=== PATIENT | female | born 1985 | race Caucasian/White ===

== ENCOUNTER 2019-03-06 21:07 | Emergency (ER) | payer SELFPAY ==
[2019-03-06] MEDS ORDERED: HYDROCODONE/APAP 5/325 MG TAB ONE (21:41)
--- NOTE | 2019-03-06 22:31 | EDPHYS ---
Physician Documentation [facility] Name: Ebonie Talbot Age: 34 yrs Sex: Female : 1985 Arrival Date: 03/06/2019 Time: 21:10 Bed 13 Private MD: Ben Irving ED Physician Rajendra Chang HPI: 03/06 21:22 This 34 yrs old Female presents to ER via Ambulatory with complaints of Back snw Pain. 21:22 The patient presents with pain that is acute. The symptoms are located in the low back, snw right low back. Onset: The symptoms/episode began/occurred suddenly, last night, and became persistent. The pain does not radiate. Associated signs and symptoms: The patient has no apparent associated signs or symptoms. The problem was sustained when bending over. Severity of symptoms: At their worst the symptoms were moderate. The patient has not experienced similar symptoms in the past. It is unknown whether or not the patient has recently seen a physician. 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 - Social history:: Smoking status: Patient/guardian denies using tobacco. - Ebola Screening: : Patient negative for fever greater than or equal to 101.5 degrees Fahrenheit, and additional compatible Ebola Virus Disease symptoms. ROS: 21:18 Constitutional: Negative for fever, chills, and weight loss, Eyes: Negative for injury, snw pain, redness, and discharge, ENT: Negative for injury, pain, and discharge, Neck: Negative for injury, pain, and swelling, Cardiovascular: Negative for chest pain, palpitations, and edema, Respiratory: Negative for shortness of breath, cough, wheezing, and pleuritic chest pain, Abdomen/GI: Negative for abdominal pain, nausea, vomiting, diarrhea, and constipation, Back: Negative for injury and pain, : Negative for injury, bleeding, discharge, and swelling, Skin: Negative for injury, rash, and discoloration, Neuro: Negative for headache, weakness, numbness, tingling, and seizure. 21:18 MS/extremity: Positive for pain, tenderness, of the right lower back. Exam: 21:19 Constitutional: This is a well developed, well nourished patient who is awake, alert, snw and in no acute distress. Head/Face: Normocephalic, atraumatic. Eyes: Pupils equal round and reactive to light, extra-ocular motions intact. Lids and lashes normal. Conjunctiva and sclera are non-icteric and not injected. Cornea within normal limits. Periorbital areas with no swelling, redness, or edema. ENT: Nares patent. No nasal discharge, no septal abnormalities noted. Tympanic membranes are normal and external auditory canals are clear. Oropharynx with no redness, swelling, or masses, exudates, or evidence of obstruction, uvula midline. Mucous membranes moist. Neck: Trachea midline, no thyromegaly or masses palpated, and no cervical lymphadenopathy. Supple, full range of motion without nuchal rigidity, or vertebral point tenderness. No Meningismus. Chest/axilla: Normal chest wall appearance and motion. Nontender with no deformity. No lesions are appreciated. Cardiovascular: Regular rate and rhythm with a normal S1 and S2. No gallops, murmurs, or rubs. Normal PMI, no JVD. No pulse deficits. Respiratory: Lungs have equal breath sounds bilaterally, clear to auscultation and percussion. No rales, rhonchi or wheezes noted. No increased work of breathing, no retractions or nasal flaring. Abdomen/GI: Soft, non-tender, with normal bowel sounds. No distension or tympany. No guarding or rebound. No evidence of tenderness throughout. Back: No spinal tenderness. No costovertebral tenderness. Full range of motion. Skin: Warm, dry with normal turgor. Normal color with no rashes, no lesions, and no evidence of cellulitis. Neuro: Awake and alert, GCS 15, oriented to person, place, time, and situation. Cranial nerves II-XII grossly intact. Motor strength 5/5 in all extremities. Sensory grossly intact. Cerebellar exam normal. Normal gait. Psych: Awake, alert, with orientation to person, place and time. Behavior, mood, and affect are within normal limits. 21:19 Musculoskeletal/extremity: ROM: intact in all extremities, pain to right lower back/upper buttock . 21:19 Neuro: Exam negative for acute changes. Vital Signs: 21:21 BP 138 / 93; Pulse 89; Resp 17 S; Pulse Ox 100% on R/A; Weight 113.4 kg (R); Height 5 jd3 ft. 5 in. (165.10 cm) (R); Pain 9/10; 22:00 BP 131 / 93; Pulse 77; Resp 16; Pulse Ox 100% on R/A; jb4 22:50 BP 132 / 84; Pulse 78; Resp 16; Pulse Ox 100% on R/A; jb4 21:21 Body Mass Index 41.60 (113.40 kg, 165.10 cm) jd3 MDM: 21:14 Patient medically screened. snw 22:33 Data reviewed: vital signs, nurses notes. Data interpreted: Pulse oximetry: on room air snw is 100 %. Interpretation: normal. Counseling: I had a detailed discussion with the patient and/or guardian regarding: the historical points, exam findings, and any diagnostic results supporting the discharge/admit diagnosis, the presence of at least one elevated blood pressure reading (>120/80) during this emergency department visit, radiology results, the need for outpatient follow up, to return to the emergency department if symptoms worsen or persist or if there are any questions or concerns that arise at home. 03/06 21:18 Order name: Pelvis XRAY snw Administered Medications: 21:22 CANCELLED (other intervention used): TORadol 30 mg IM once snw 21:31 Drug: [place]win 5 mg-325 mg 1 tabs Route: PO; jb4 22:00 Follow up: Response: No adverse reaction; Pain is unchanged, physician notified jb4 22:48 Drug: Valium 5 mg Route: PO; jb4 22:49 Follow up: Response: Medication administered at discharge. jb4 Disposition: 03/07 03:00 Co-signature as Attending Physician, Rajendra Chang MD. ma2 Disposition: 03/06/19 22:30 Discharged to Home. Impression: Pain in right hip, Other bursitis of hip, right hip. - Condition is Stable. - Discharge Instructions: Joint Pain, Hip Bursitis, Musculoskeletal Pain, Hip Pain, Cryotherapy, Heat Therapy. - Prescriptions for Ultram 50 mg Oral Tablet - take 1 tablet by ORAL route every 6 hours As needed; 20 tablet. - Medication Reconciliation Form, Thank You Letter, Antibiotic Education, Prescription Opioid Use form. - Follow up: Ben Irving MD; When: 2 - 3 days; Reason: Recheck today's complaints, Continuance of care, Re-evaluation by your physician. Follow up: Emergency Department; When: As needed; Reason: Worsening of condition. Signatures: Dispatcher [employer] EDMS Neetu Oneil, MEDICAL ANTHROPOLOGY DIRECTOR-C MEDICAL ANTHROPOLOGY DIRECTOR-Csnw Shoaib Workman, RN RN jb4 Tony Murray RN RN jd3 Rajendra Chang MD MD ma2 Corrections: (The following items were deleted from the chart) 03/06 21:22 21:18 TORadol 30 mg IM once ordered. snw snw 21:22 21:21 TORadol 30 mg IM once ordered. snw snw 22:56 22:30 03/06/2019 22:30 Discharged to Home. Impression: Pain in right hip; Other jb4 bursitis of hip, right hip. Condition is Stable. Forms are Medication Reconciliation Form, Thank You Letter, Antibiotic Education, Prescription Opioid Use. Follow up: Ben Irving; When: 2 - 3 days; Reason: Recheck today's complaints, Continuance of care, Re-evaluation by your physician. Follow up: Emergency Department; When: As needed; Reason: Worsening of condition. snw
--- NOTE | 2019-03-06 22:31 | ER ---
Nurse's Notes [facility] Name: Ebonie Talbot Age: 34 yrs Sex: Female : 1985 Arrival Date: 03/06/2019 Time: 21:10 Bed 13 Private MD: Ben Irving Diagnosis: Pain in right hip;Other bursitis of hip, right hip Presentation: 03/06 21:19 Presenting complaint: Patient states: "I lifted my right leg up onto a shower chair to [facility] dry off and when I did, I heard a pop and now my right hip really hurts.". Transition of care: patient was not received from another setting of care. Onset of symptoms was March 05, 2019. Risk Assessment: Do you want to hurt yourself or someone else? Patient reports no desire to harm self or others. Initial Sepsis Screen: Does the patient meet any 2 criteria? No. Patient's initial sepsis screen is negative. Does the patient have a suspected source of infection? No. Patient's initial sepsis screen is negative. Care prior to arrival: None. 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 - Social history:: Smoking status: Patient/guardian denies using tobacco. - Ebola Screening: : Patient negative for fever greater than or equal to 101.5 degrees Fahrenheit, and additional compatible Ebola Virus Disease symptoms. Screenin:10 Abuse screen: Denies threats or abuse. Nutritional screening: No deficits noted. jb4 Tuberculosis screening: No symptoms or risk factors identified. Fall Risk None identified. Assessment: 21:10 General: Appears in no apparent distress. uncomfortable, Behavior is calm, cooperative, jb4 appropriate for age. Pain: Complains of pain in right low back Pain radiates to right mid back Pain currently is 5 out of 10 on a pain scale. at worst was 10 out of 10 on a pain scale. Quality of pain is described as stabbing, Pain began 1 day ago. Is continuous, Alleviated by rest, Aggravated by increased activity. Neuro: Level of Consciousness is awake, alert, obeys commands, Oriented to person, place, time, situation. Cardiovascular: Patient's skin is warm and dry. Respiratory: Airway is patent Respiratory effort is even, unlabored, Respiratory pattern is regular, symmetrical. GI: No signs and/or symptoms were reported involving the gastrointestinal system. : No signs and/or symptoms were reported regarding the genitourinary system. EENT: No signs and/or symptoms were reported regarding the EENT system. Derm: Skin is intact, Skin is pink, warm \\T\\ dry. Musculoskeletal: Circulation, motion, and sensation intact. 22:21 Reassessment: Patient appears in no apparent distress at this time. No changes from jb4 previously documented assessment. Patient and/or family updated on plan of care and expected duration. Pain level reassessed. Patient is alert, oriented x 3, equal unlabored respirations, skin warm/dry/pink. 22:50 Reassessment: Patient appears in no apparent distress at this time. Patient is alert, jb4 oriented x 3, equal unlabored respirations, skin warm/dry/pink. Pt ambulated out of ED with steady gait, verbalized understanding of d/c and follow up instructions. Vital Signs: 21:21 BP 138 / 93; Pulse 89; Resp 17 S; Pulse Ox 100% on R/A; Weight 113.4 kg (R); Height 5 jd3 ft. 5 in. (165.10 cm) (R); Pain 9/10; 22:00 BP 131 / 93; Pulse 77; Resp 16; Pulse Ox 100% on R/A; jb4 22:50 BP 132 / 84; Pulse 78; Resp 16; Pulse Ox 100% on R/A; jb4 21:21 Body Mass Index 41.60 (113.40 kg, 165.10 cm) jd3 ED Course: 21:10 Patient arrived in ED. es 21:11 Ben Irving MD is Private Physician. es 21:14 Neetu Oneil F[facility]-C [facility]. snw 21:14 Rajendra Chang MD is Attending Physician. snw 21:15 Patient has correct armband on for positive identification. Bed in low position. Call jb4 light in reach. Side rails up X 1. Pulse ox on. NIBP on. 21:20 Shoaib Workman, RN is Primary Nurse. jb4 21:21 Triage completed. jd3 21:22 Arm band placed on. jd3 22:10 Pelvis XRAY In Process Unspecified. EDMS 22:29 Ben Irving MD is Referral Physician. snw 22:50 No provider procedures requiring assistance completed. Patient did not have IV access jb4 during this emergency room visit. Administered Medications: : CANCELLED (other intervention used): TORadol 30 mg IM once snw 21:31 Drug: [place] 5 mg-325 mg 1 tabs Route: PO; jb4 22:00 Follow up: Response: No adverse reaction; Pain is unchanged, physician notified jb4 22:48 Drug: Valium 5 mg Route: PO; jb4 22:49 Follow up: Response: Medication administered at discharge. jb4 Outcome: 22:30 Discharge ordered by . snw 22:50 Discharged to home ambulatory, with family. jb4 22:50 Condition: stable 22:50 Discharge instructions given to patient, Instructed on discharge instructions, follow up and referral plans. medication usage, Demonstrated understanding of instructions, follow-up care, medications, Prescriptions given X 1. 22:56 Patient left the ED. jb4 Signatures: Dispatcher [employer] EDMO Neetu Oneil, PIT CRANE OPERATOR-C PIT CRANE OPERATOR-Csnw Susanne Espinosa James, RN YUMIKO jb4 Tony Murray RN RN jd3
[2019-03-06] MEDS ORDERED: DIAZEPAM 5 MG TABLET ONE (22:57)
[2019-03-06 23:02] VITALS: O2SAT 100
[2019-03-06 23:04] VITALS: BP 132/84
--- NOTE | 2019-03-07 08:43 | RAD REPORT ---
EXAM DESCRIPTION: RAD - Pelvis - 03/06/2019 10:09 pm CLINICAL HISTORY: Right hip pain following trauma COMPARISON: None. TECHNIQUE: AP imaging of the pelvis was obtained. FINDINGS: AP views of the pelvis and bilateral hip joints obtained. No fracture or dislocation. No femoral head abnormality. Hip joints are normal in appearance and symm etric. No periarticular abnormality. Bony pelvis unremarkable. No soft tissue abnormality identifiabl e. IMPRESSION: Negative pelvis
== END 2019-03-06 22:56 | disposition home or self-care (01) ==
LOC: ER 21:07
DX: M71.551 Other bursitis, not elsewhere classified, right hip (principal); Z88.6 Allergy status to analgesic agent; Z88.1 Allergy status to other antibiotic agents
CPT/HCPCS: 72170; 99284

== ENCOUNTER 2020-02-22 08:41 | Emergency (ER) | payer SELFPAY ==
[2020-02-22] MEDS ORDERED: METHYLPREDNISOLONE 125 MG INJ ONE (09:56)
[2020-02-22] MEDS ORDERED: KETOROLAC 30 MG/ML INJ ONE (09:57)
[2020-02-22] MEDS ORDERED: HYDROCODONE/APAP 10/325 TAB ONE (09:57)
[2020-02-22 10:08] LABS: Urine Blood NEGATIVE (NEG); Urine Glucose NEGATIVE (NEG); Urine Protein NEGATIVE (NEG); Urine Specific Gravity 1.025 (1.005-1.030); Urine pH 5.5 (5.0-7.0)
--- NOTE | 2020-02-22 10:16 | RAD REPORT ---
EXAM DESCRIPTION: CT - Spine Lumbar Wo Con - 02/22/2020 10:06 am CLINICAL HISTORY: Radiculopathy. LOWER BACK PAIN COMPARISON: No comparisons TECHNIQUE: Axial noncontrast CT imaging of the lumbar spine was performed with coronal and sagittal re-formatted images. All CT scans are performed using dose optimization technique as appropriate and may include automated exposure control or mA/KV adjustment according to patient size. FINDINGS: No acute lumbar spine fracture seen. No aggressive marrow pattern or malalignment. Paraspinal tissues are normal in thickness. No paraspinal abscess or hematoma seen. Mild posterior disc bulges are present lower lumbar levels most notable at L4-5 and L5-S1. No severe canal stenosis suspected. IMPRESSION: No acute lumbar spine abnormality is seen. Consider MRI follow-up for assessment of disc disease if clinically desired.
--- NOTE | 2020-02-22 11:36 | EDPHYS ---
Physician Documentation [facility] Name: Ebonie Talbot Age: 35 yrs Sex: Female : 1985 Arrival Date: 02/22/2020 Time: 08:44 Bed 14 Private MD: ED Physician Tristian Evangelista HPI: 02/22 07:31 This 35 yrs old Female presents to ER via Ambulatory with complaints of Back kdr Pain. 07:31 The patient presents with pain that is acute, with no known mechanism of injury. The kdr symptoms are located in the low back. Onset: The symptoms/episode began/occurred suddenly, 2 day(s) ago. The pain does not radiate. Associated signs and symptoms: The patient has no apparent associated signs or symptoms. The problem was sustained from unknown cause. Modifying factors: The patient symptoms are alleviated by specific position, sitting, the patient symptoms are aggravated by movement, supine position. Severity of symptoms: At their worst the symptoms were mild, moderate, just prior to arrival, in the emergency department the symptoms are unchanged. The patient has not experienced similar symptoms in the past. The patient has not recently seen a physician. Historical: - Allergies: 02/21 09:00 Ceclor; ss 09:00 Naproxen; ss - PSHx: 09:00 Tubal ligation; lap band; right knee; Adenoids; Ear Tubes; Cholecystectomy; ss Appendectomy; - Immunization history:: Adult Immunizations up to date. - Social history:: Smoking status: Patient denies any tobacco usage or history of. ROS: 02/22 07:31 Constitutional: Negative for fever, chills, and weight loss, Eyes: Negative for injury, kdr pain, redness, and discharge, Neck: Negative for injury, pain, and swelling, Cardiovascular: Negative for chest pain, palpitations, and edema, Respiratory: Negative for shortness of breath, cough, wheezing, and pleuritic chest pain, Abdomen/GI: Negative for abdominal pain, nausea, vomiting, diarrhea, and constipation, : Negative for injury, bleeding, discharge, and swelling, MS/Extremity: Negative for injury and deformity, Skin: Negative for injury, rash, and discoloration, Neuro: Negative for headache, weakness, numbness, tingling, and seizure activity. Psych: Negative for depression, anxiety, suicide ideation, homicidal ideation, and hallucinations, Allergy/Immunology: Negative for hives, rash, and allergies, Endocrine: Negative for neck swelling, polydipsia, polyuria, polyphagia, and marked weight changes, Hematologic/Lymphatic: Negative for swollen nodes, abnormal bleeding, and unusual bruising. Back: Positive for decreased range of motion, pain at rest, pain with movement, of the lumbar area. Exam: 07:31 Constitutional: This is a well developed, well nourished patient who is awake, alert, kdr and in no acute distress. Head/Face: Normocephalic, atraumatic. Eyes: Pupils equal round and reactive to light, extra-ocular motions intact. Lids and lashes normal. Conjunctiva and sclera are non-icteric and not injected. Cornea within normal limits. Periorbital areas with no swelling, redness, or edema. Neck: Trachea midline, no thyromegaly or masses palpated, and no cervical lymphadenopathy. Supple, full range of motion without nuchal rigidity, or vertebral point tenderness. No Meningismus. Chest/axilla: Normal chest wall appearance and motion. Nontender with no deformity. No lesions are appreciated. Cardiovascular: Regular rate and rhythm with a normal S1 and S2. No gallops, murmurs, or rubs. Normal PMI, no JVD. No pulse deficits. Respiratory: Lungs have equal breath sounds bilaterally, clear to auscultation and percussion. No rales, rhonchi or wheezes noted. No increased work of breathing, no retractions or nasal flaring. Abdomen/GI: Soft, non-tender, with normal bowel sounds. No distension or tympany. No guarding or rebound. No evidence of tenderness throughout. Skin: Warm, dry with normal turgor. Normal color with no rashes, no lesions, and no evidence of cellulitis. MS/ Extremity: Pulses equal, no cyanosis. Neurovascular intact. Full, normal range of motion. Neuro: Awake and alert, GCS 15, oriented to person, place, time, and situation. Cranial nerves II-XII grossly intact. Motor strength 5/5 in all extremities. Sensory grossly intact. Cerebellar exam normal. Normal gait. Psych: Awake, alert, with orientation to person, place and time. Behavior, mood, and affect are within normal limits. 07:31 Back: pain, that is mild, of the lumbar area, ROM is painful, with all movement, normal spinal alignment noted, CVA tenderness, is absent. Vital Signs: 02/21 08:59 BP 142 / 88; Pulse 84; Resp 16; Temp 98.8(TE); Pulse Ox 100% on R/A; Weight 104.33 kg; ss Height 5 ft. 5 in. (165.10 cm); Pain 8/10; 08:59 Body Mass Index 38.27 (104.33 kg, 165.10 cm) ss MDM: 11:35 Patient medically screened. kdr 02/22 07:31 Data reviewed: vital signs, nurses notes, radiologic studies. Counseling: I had a kdr detailed discussion with the patient and/or guardian regarding: the historical points, exam findings, and any diagnostic results supporting the discharge/admit diagnosis, radiology results, the need for outpatient follow up. 02/21 10:03 Order name: Urine Dipstick--Ancillary (enter results); Complete Time: 11:23 em1 02/21 10:03 Order name: Urine --Ancillary (enter results); Complete Time: 11:23 em1 02/21 09:35 Order name: CT Lumbar Spine Wo Con; Complete Time: 11:23 kdr 02/21 09:35 Order name: Urine Dipstick-Ancillary (obtain specimen); Complete Time: 09:57 kdr 02/21 09:35 Order name: Urine Test (obtain specimen); Complete Time: 09:57 kdr Administered Medications: 02/21 10:23 Drug: Page 10 mg-325 mg 1 tabs Route: PO; em 11:20 Follow up: Response: No adverse reaction; No change in condition; Pain is unchanged, em physician notified; RASS: Alert and Calm (0) 10:25 Drug: TORadol - Ketorolac 15 mg Route: IVP; Site: right antecubital; em 11:20 Follow up: Response: No adverse reaction; Pain is unchanged, physician notified em 10:27 Drug: SOLU-Medrol 125 mg Route: IVP; Site: right antecubital; em 11:20 Follow up: Response: No adverse reaction; Pain is unchanged, physician notified em 11:49 Drug: Robaxin 750 mg Route: PO; aa5 11:49 Follow up: Response: Medication administered at discharge. aa5 Disposition: 02/22/20 11:35 Discharged to Home. Impression: Low back pain. - Condition is Stable. - Discharge Instructions: Back Pain, Adult, Musculoskeletal Pain, Pain Without a Known Cause. - Prescriptions for Robaxin 500 mg Oral Tablet - take 2 tablet by ORAL route every 6 hours As needed; 40 tablet. Tylenol- Codeine #3 300-30 mg Oral Tablet - take 2 tablet by ORAL route every 6 hours As needed; 30 tablet. Medrol (Jake) 4 mg Oral Tablets, Dose Pack - take 1 tablet by ORAL route as directed - follow package instructions; 1 packet. - Medication Reconciliation Form, Thank You Letter, Prescription Opioid Use form. - Follow up: Private Physician; When: 2 - 3 days; Reason: If symptoms return, Further diagnostic work-up, Recheck today's complaints, Continuance of care, Re-evaluation by your physician. - Problem is new. - Symptoms have improved. Signatures: Dispatcher [employer] EDTristian Mejia MD MD kdr Rigoberto Small RN RN em Jacqueline Vergara RN RN aa5 Taty Caal RN RN ss Corrections: (The following items were deleted from the chart) 11:50 11:35 02/22/2020 11:35 Discharged to Home. Impression: Low back pain. Condition is aa5 Stable. Forms are Medication Reconciliation Form, Thank You Letter, Antibiotic Education, Prescription Opioid Use. Follow up: Private Physician; When: 2 - 3 days; Reason: If symptoms return, Further diagnostic work-up, Recheck today's complaints, Continuance of care, Re-evaluation by your physician. Problem is new. Symptoms have improved. kdr
--- NOTE | 2020-02-22 11:36 | ER ---
Nurse's Notes [facility] Name: Ebonie Talbot Age: 35 yrs Sex: Female : 1985 Arrival Date: 02/22/2020 Time: 08:44 Bed 14 Private MD: Diagnosis: Low back pain Presentation: 02/21 08:59 Chief complaint: Patient states: Low back pain that began 2 days ago. Denies injury. Coronavirus screen: Proceed with normal triage. Patient denies a cough. Patient denies shortness of breath or difficulty breathing. Patient denies measured and/or subjective temperature greater than 100.4F prior to today's visit. Patient denies travel on a cruise ship or to a country the [facility] currently lists as an affected area. Patient denies contact with known and/or suspected case of COVID-19. Ebola Screen: Patient denies exposure to infectious person. Patient denies travel to an Ebola-affected area in the 21 days before illness onset. Initial Sepsis Screen: Does the patient meet any 2 criteria? No. Patient's initial sepsis screen is negative. Does the patient have a suspected source of infection? No. Patient's initial sepsis screen is negative. Risk Assessment: Do you want to hurt yourself or someone else? Patient reports no desire to harm self or others. Onset of symptoms was February 20, 2020. 08:59 Method Of Arrival: Ambulatory 08:59 Acuity: RAMU 4 ss Historical: - Allergies: 09:00 Ceclor; ss 09:00 Naproxen; ss - PSHx: 09:00 Tubal ligation; lap band; right knee; Adenoids; Ear Tubes; Cholecystectomy; ss Appendectomy; - Immunization history:: Adult Immunizations up to date. - Social history:: Smoking status: Patient denies any tobacco usage or history of. Screenin:45 Abuse screen: Denies threats or abuse. Nutritional screening: No deficits noted. em Tuberculosis screening: No symptoms or risk factors identified. Fall Risk None identified. Assessment: 09:45 General: Appears in no apparent distress. comfortable, Behavior is calm, cooperative, em appropriate for age. Pain: Complains of pain in lumbar area Pain currently is 8 out of 10 on a pain scale. Pain began 2-3 days ago. Neuro: Level of Consciousness is awake, alert, obeys commands, Oriented to person, place, time, situation, Appropriate for age. Cardiovascular: Capillary refill < 3 seconds Patient's skin is warm and dry. Respiratory: Airway is patent Respiratory effort is even, unlabored, Respiratory pattern is regular, symmetrical. GI: Abdomen is round non-distended. : Denies burning with urination, urinary frequency. Derm: Skin is intact, is healthy with good turgor, Skin is pink, warm \T\ dry. Musculoskeletal: Capillary refill < 3 seconds, Range of motion: intact in all extremities. 11:17 Reassessment: Patient appears in no apparent distress at this time. reports pain is a em little better, rates pain 7/10, provider notified. 11:50 Reassessment: Patient is alert, oriented x 3, equal unlabored respirations, skin aa5 warm/dry/pink. Vital Signs: 08:59 BP 142 / 88; Pulse 84; Resp 16; Temp 98.8(TE); Pulse Ox 100% on R/A; Weight 104.33 kg; ss Height 5 ft. 5 in. (165.10 cm); Pain 8/10; 08:59 Body Mass Index 38.27 (104.33 kg, 165.10 cm) ED Course: 08:44 Patient arrived in ED. as 09:00 Triage completed. ss 09:00 Arm band placed on right wrist. ss 09:26 Tristian Evangelista MD is Attending Physician. kdr 09:27 Rigoberto Small, YUMIKO is Primary Nurse. em 09:57 Urine collected: clean catch specimen, clear. ca1 10:07 CT Lumbar Spine Wo Con In Process Unspecified. EDMS 11:49 No provider procedures requiring assistance completed. IV discontinued, intact, aa5 bleeding controlled, No redness/swelling at site. Pressure dressing applied. Administered Medications: 10:23 Drug: Montross 10 mg-325 mg 1 tabs Route: PO; em 11:20 Follow up: Response: No adverse reaction; No change in condition; Pain is unchanged, em physician notified; RASS: Alert and Calm (0) 10:25 Drug: TORadol - Ketorolac 15 mg Route: IVP; Site: right antecubital; em 11:20 Follow up: Response: No adverse reaction; Pain is unchanged, physician notified em 10:27 Drug: SOLU-Medrol 125 mg Route: IVP; Site: right antecubital; em 11:20 Follow up: Response: No adverse reaction; Pain is unchanged, physician notified em 11:49 Drug: Robaxin 750 mg Route: PO; aa5 11:49 Follow up: Response: Medication administered at discharge. aa5 Outcome: 11:35 Discharge ordered by . kdr 11:49 Discharged to home ambulatory. aa5 11:49 Condition: improved 11:49 Discharge instructions given to patient, Instructed on discharge instructions, follow up and referral plans. medication usage, Demonstrated understanding of instructions, follow-up care, medications, Prescriptions given X 3. 11:50 Patient left the ED. aa5 Signatures: Dispatcher [employer] EDMS Tristian Evangelista MD MD kdr Munoz, Edgar RN RN Chantel Vogel Audri RN RN aa5 Taty Caal RN RN Kusum Wray RN RN ca1
[2020-02-22] MEDS ORDERED: methocarbamoL 500 MG TAB ONE ×3 (11:42→11:53)
[2020-02-22 12:00] VITALS: BP 142/88; TEMP 98.8; O2SAT 100
== END 2020-02-22 11:50 | disposition home or self-care (01) ==
LOC: ER 08:41
DX: M54.5 Low back pain (principal); Z88.1 Allergy status to other antibiotic agents; Z88.5 Allergy status to narcotic agent
CPT/HCPCS: 72131; 81003; 81025; 96374; 96375; 99284; J2930